=== PATIENT | male | born 1980 | race Caucasian/White ===

== ENCOUNTER 2017-04-01 12:06 | Inpatient (IN) | payer OTHER ==
[2017-04-01 13:43] LABS: ADD MAN DIFF? NO
[2017-04-01 13:45] LABS: BASOPHIL # 0.1 10^3/ul (0.0-0.1); BASOPHILS % 0.6 % (0.0-2.0); EOSINOPHILS % 0.3 % (0.0-7.0); HEMATOCRIT 45.4 % (42.0-52.0); LYMPHOCYTES # 2.6 10^3/ul (0.8-2.9); LYMPHOCYTES % 23.6 % (15.0-51.0); MEAN CORPUSCULAR HEMOGLOBIN 28.6 pg (29.0-33.0); MEAN CORPUSCULAR HGB CONC 35.2 g/dl (32.0-37.0); MEAN CORPUSCULAR VOLUME 81.2 fl (82.0-101.0); MEAN PLATELET VOLUME 9.3 fl (7.4-10.4); MONOCYTE # 1.2 10^3/ul (0.3-0.9); MONOCYTES % 11.2 % (0.0-11.0); NEUTROPHILS % 63.8 % (39.0-77.0); PLATELET COUNT 212 10^3/UL (140-415); POSITIVE DIFF @See below; RED BLOOD COUNT 5.59 10^6/ul (4.70-6.10); RED CELL DISTRIBUTION WIDTH 13.2 % (11.5-14.5)
[2017-04-01] MEDS: DEXAMETHASONE 10 MG/ML 1 ML INJ IV ×2 (13:46→23:43)
[2017-04-01] MEDS: morphine 4 MG/ML VIAL IV (13:46)
[2017-04-01] MEDS: ONDANSETRON 4 MG INJ IV (13:46)
[2017-04-01] MEDS: PIPER-TAZO 3.375 GM IV (PMX) 50 ML IVPB ×2 (13:47→19:15)
[2017-04-01] MEDS: SODIUM CHLORIDE 0.9% 1L BAG IV* (13:47)
[2017-04-01 14:04] LABS: INR 1.09; PROTIME 14.3 Sec (11.9-14.9); PT RATIO 1.1
[2017-04-01 14:05] LABS: PARTIAL THROMBOPLASTIN TIME 35.7 Sec (25.0-35.0)
[2017-04-01 14:10] LABS: LACTIC ACID 1.3 mmol/L (0.5-2.0)
[2017-04-01 14:13] LABS: ALANINE AMINOTRANSFERASE 174 IU/L (13-69); ALBUMIN 4.5 g/dl (3.3-4.9); ALBUMIN/GLOBULIN RATIO 1.45; ALKALINE PHOSPHATASE 111 IU/L (42-121); ANION GAP 14 (8-16); ASPARTATE AMINO TRANSFERASE 93 IU/L (15-46); BILIRUBIN,INDIRECT 0.8 mg/dl (0-1.1); BILIRUBIN,TOTAL 0.8 mg/dl (0.2-1.3); BLOOD UREA NITROGEN 10 mg/dl (7-20); CALCIUM 9.5 mg/dl (8.4-10.2); CARBON DIOXIDE 29 mmol/L (21-31); CHLORIDE 98 mmol/L (97-110); CREATININE 0.95 mg/dl (0.61-1.24); GLUCOSE 107 mg/dl (70-220); POTASSIUM 4.2 mmol/L (3.5-5.1); SODIUM 137 mmol/L (135-144); TOTAL PROTEIN 7.6 g/dl (6.1-8.1)
[2017-04-01 14:23] LABS: TROPONIN-I < 0.012 ng/ml (0.00-0.12)
[2017-04-01] MEDS ORDERED: ONDANSETRON 4 MG INJ IV (15:00)
[2017-04-01] MEDS: IOHEXOL 300MG/ML 150 ML BTL (15:20)
[2017-04-01] MEDS: SOD CHLORIDE 0.9% 100 ML (15:20)
[2017-04-01] MEDS: VANCOMYCIN 1 GM (PMX) 250 ML IVPB (16:00)
[2017-04-01] MEDS: KETOROLAC 30 MG INJ IV (16:52)
[2017-04-01] MEDS ORDERED: VANCOMYCIN IV PER PHARMACY XX (17:00)
[2017-04-01 17:02] LABS: LACTIC ACID 1.1 mmol/L (0.5-2.0)
[2017-04-01] MEDS: DEXTROSE 5%-0.45% NACL 1,000 ML IV (18:10)
[2017-04-01 20:30] LABS: ADD UMIC NO; UR ASCORBIC ACID NEGATIVE (NEGATIVE); UR BILIRUBIN (Dip) NEGATIVE (NEGATIVE); UR BLOOD (Dip) NEGATIVE (NEGATIVE); UR CLARITY CLEAR (CLEAR); UR COLOR STRAW (YELLOW); UR GLUCOSE (Dip) NEGATIVE (NEGATIVE); UR KETONES (Dip) NEGATIVE (NEGATIVE); UR LEUKOCYTE ESTERASE (Dip) NEGATIVE Leu/ul (NEGATIVE); UR NITRITE (Dip) NEGATIVE (NEGATIVE); UR SPECIFIC GRAVITY (Dip) 1.013 (1.003-1.030); UR TOTAL PROTEIN (Dip) NEGATIVE (NEGATIVE); UR UROBILINOGEN (Dip) NEGATIVE (NEGATIVE)
[2017-04-01 21:56] LABS: LACTIC ACID 1.4 mmol/L (0.5-2.0)
[2017-04-01] MEDS: VANCOMYCIN 1.25 GM in SODIUM CHLORIDE 0.45 % 250 ML IVPB (22:09)
[2017-04-02] MEDS: HYDROmorphONE 1 MG/ML SYG IV (00:08)
[2017-04-02] MEDS: DEXTROSE 5%-0.45% NACL 1,000 ML IV ×2 (01:36→09:38)
[2017-04-02] MEDS: PIPER-TAZO 3.375 GM IV (PMX) 50 ML IVPB ×5 (01:36→23:48)
[2017-04-02] MEDS: DEXAMETHASONE 10 MG/ML 1 ML INJ IV (04:02)
[2017-04-02] MEDS: VANCOMYCIN 1.25 GM in SODIUM CHLORIDE 0.45 % 250 ML IVPB ×2 (05:00→14:41)
[2017-04-02] MEDS: PANTOPRAZOLE 40 MG INJ IV (06:33)
[2017-04-02 12:33] LABS: VANCOMYCIN,TROUGH 11.7 ug/ml (10.0-20.0)
[2017-04-02] MEDS: KETOROLAC 30 MG INJ IV (12:36)
[2017-04-03] MEDS: KETOROLAC 30 MG INJ IV (04:33)
[2017-04-03 05:28] LABS: ADD MAN DIFF? NO
[2017-04-03] MEDS: PANTOPRAZOLE 40 MG INJ IV (05:40)
[2017-04-03] MEDS: PIPER-TAZO 3.375 GM IV (PMX) 50 ML IVPB (05:40)
[2017-04-03 05:52] LABS: WHITE BLOOD COUNT 9.9 10^3/ul (4.8-10.8)
[2017-04-03 05:52] LABS: BASOPHIL # 0.1 10^3/ul (0.0-0.1); BASOPHILS % 0.7 % (0.0-2.0); EOSINOPHILS # 0.2 10^3/ul (0.0-0.5); EOSINOPHILS % 1.5 % (0.0-7.0); HEMATOCRIT 37.5 % (42.0-52.0); HEMOGLOBIN 13.5 g/dl (14.0-18.0); LYMPHOCYTES # 3.2 10^3/ul (0.8-2.9); LYMPHOCYTES % 32.4 % (15.0-51.0); MEAN CORPUSCULAR HEMOGLOBIN 29.3 pg (29.0-33.0); MEAN CORPUSCULAR VOLUME 81.5 fl (82.0-101.0); MEAN PLATELET VOLUME 9.8 fl (7.4-10.4); MONOCYTES % 10.1 % (0.0-11.0); NEUTROPHIL # 5.5 10^3/ul (1.6-7.5); PLATELET COUNT 241 10^3/UL (140-415); POSITIVE DIFF @See below; RED CELL DISTRIBUTION WIDTH 13.7 % (11.5-14.5)
== END 2017-04-03 12:08 | disposition home or self-care (01) | DRG 153 ==
LOC: ICU 14:12 → FTE 12:06 → PP2 04-02 20:14
DX: J03.90 Acute tonsillitis, unspecified (principal); R65.10 Systemic inflammatory response syndrome (SIRS) of non-infectious origin without acute organ dysfunction
CPT/HCPCS: 36415; 70491; 71010; 80053; 80202; 81003; 83605; 84484; 85025; 85610; 85730; 87040; 87081; 87086; 93005; 96374; 96375; 96376; 99291-25

== ENCOUNTER 2017-06-01 12:02 | Day surgery (SDC) | payer OTHER ==
[~2017-06-01 12:02] MED LIST: LIDOCAINE 1% (MDV) 20 ML INJ
[2017-06-01] MEDS ORDERED: PROPOFOL 20 ML (14:33)
[2017-06-01] MEDS ORDERED: FENTAnyl 50 MCG/ML VIAL (14:33)
[2017-06-01] MEDS ORDERED: ROCURONIUM 50 MG INJ (14:33)
[2017-06-01] MEDS ORDERED: MIDAZOLAM 1 MG/ML 2 ML INJ (14:33)
[2017-06-01] MEDS ORDERED: ONDANSETRON 4 MG INJ (14:45)
[2017-06-01] MEDS ORDERED: DEXAMETHASONE 4 MG/ML 1 ML INJ (14:45)
[2017-06-01] MEDS ORDERED: FAMOTIDINE 20 MG INJ (14:47)
[2017-06-01] MEDS ORDERED: SUGAMMADEX SODIUM 200 MG/2 ML VIAL IV (15:10)
[2017-06-01] MEDS ORDERED: MEPERIDINE 25 MG INJ (15:22)
[2017-06-01] MEDS: HYDROmorphONE (0.2 MG/ML) 10ML SYG IV (15:51)
[2017-06-01] MEDS ORDERED: OXYCODONE/ACETAMINOPHEN (5/325) TAB PO (16:00)
== END 2017-06-01 16:28 | disposition home or self-care (01) ==
LOC: SDS 12:02
DX: J35.01 Chronic tonsillitis (principal)
CPT/HCPCS: 42826; 71045; 88304

== ENCOUNTER 2017-06-02 01:39 | Emergency (ER) | payer OTHER ==
[2017-06-02] MEDS: SOD CHLORIDE 0.9% 1,000 ML IV (02:12)
[2017-06-02 02:29] LABS: ADD MAN DIFF? NO
[2017-06-02 02:31] LABS: BASOPHIL # 0.1 10^3/ul (0.0-0.1); BASOPHILS % 0.3 % (0.0-2.0); HEMATOCRIT 46.4 % (42.0-52.0); HEMOGLOBIN 16.7 g/dl (14.0-18.0); LYMPHOCYTES # 1.7 10^3/ul (0.8-2.9); LYMPHOCYTES % 8.3 % (15.0-51.0); MEAN CORPUSCULAR HEMOGLOBIN 28.7 pg (29.0-33.0); MEAN CORPUSCULAR VOLUME 79.9 fl (82.0-101.0); MEAN PLATELET VOLUME 9.7 fl (7.4-10.4); MONOCYTES % 4.9 % (0.0-11.0); NEUTROPHILS % 85.8 % (39.0-77.0); PLATELET COUNT 406 10^3/UL (140-415); RED BLOOD COUNT 5.81 10^6/ul (4.70-6.10); RED CELL DISTRIBUTION WIDTH 13.8 % (11.5-14.5)
[2017-06-02 02:46] LABS: INR 0.97
[2017-06-02 02:47] LABS: PARTIAL THROMBOPLASTIN TIME 27.4 Sec (25.0-35.0)
[2017-06-02 02:48] LABS: ALANINE AMINOTRANSFERASE 58 IU/L (13-69); ALBUMIN 4.8 g/dl (3.3-4.9); ALBUMIN/GLOBULIN RATIO 1.92; ALKALINE PHOSPHATASE 63 IU/L (42-121); ANION GAP 21 (8-16); ASPARTATE AMINO TRANSFERASE 34 IU/L (15-46); BILIRUBIN,INDIRECT 0.3 mg/dl (0-1.1); BILIRUBIN,TOTAL 0.3 mg/dl (0.2-1.3); BLOOD UREA NITROGEN 13 mg/dl (7-20); CALCIUM 10.1 mg/dl (8.4-10.2); CARBON DIOXIDE 25 mmol/L (21-31); CHLORIDE 102 mmol/L (97-110); CREATININE 0.82 mg/dl (0.61-1.24); GLUCOSE 121 mg/dl (70-220); POTASSIUM 4.4 mmol/L (3.5-5.1); SODIUM 144 mmol/L (135-144); TOTAL PROTEIN 7.3 g/dl (6.1-8.1)
[2017-06-02 03:12] LABS: TROPONIN-I < 0.012 ng/ml (0.00-0.12)
== END 2017-06-02 05:50 | disposition home or self-care (01) ==
LOC: E/R 01:39
DX: L76.22 Postprocedural hemorrhage of skin and subcutaneous tissue following other procedure (principal); F17.210 Nicotine dependence, cigarettes, uncomplicated; R07.9 Chest pain, unspecified
CPT/HCPCS: 36415; 71045; 80053; 84484; 85025; 85610; 85730; 93005; 99285-25

== ENCOUNTER 2017-06-06 06:57 | Emergency (ER) | payer OTHER ==
[2017-06-06 08:48] LABS: ADD MAN DIFF? NO
[2017-06-06 08:59] LABS: BASOPHIL # 0.1 10^3/ul (0.0-0.1); BASOPHILS % 0.4 % (0.0-2.0); EOSINOPHILS # 0.3 10^3/ul (0.0-0.5); EOSINOPHILS % 2.5 % (0.0-7.0); HEMATOCRIT 42.8 % (42.0-52.0); HEMOGLOBIN 15.3 g/dl (14.0-18.0); LYMPHOCYTES # 1.5 10^3/ul (0.8-2.9); LYMPHOCYTES % 12.2 % (15.0-51.0); MEAN CORPUSCULAR HEMOGLOBIN 28.7 pg (29.0-33.0); MEAN CORPUSCULAR HGB CONC 35.7 g/dl (32.0-37.0); MEAN CORPUSCULAR VOLUME 80.1 fl (82.0-101.0); MEAN PLATELET VOLUME 9.7 fl (7.4-10.4); MONOCYTE # 0.9 10^3/ul (0.3-0.9); MONOCYTES % 7.5 % (0.0-11.0); NEUTROPHIL # 9.2 10^3/ul (1.6-7.5); NEUTROPHILS % 76.7 % (39.0-77.0); PLATELET COUNT 348 10^3/UL (140-415); RED BLOOD COUNT 5.34 10^6/ul (4.70-6.10); RED CELL DISTRIBUTION WIDTH 13.1 % (11.5-14.5)
== END 2017-06-06 09:31 | disposition home or self-care (01) ==
LOC: FTE 06:57
DX: L76.22 Postprocedural hemorrhage of skin and subcutaneous tissue following other procedure (principal); Z87.891 Personal history of nicotine dependence
CPT/HCPCS: 85025; 99283

== ENCOUNTER 2017-07-10 16:25 | Emergency (ER) | payer SELFPAY, OTHER | END 2017-07-10 18:50 | disposition left against medical advice (07) | LOC: FTE 16:25 | DX: Z53.21 Procedure and treatment not carried out due to patient leaving prior to being seen by health care provider (principal) ==

== ENCOUNTER 2018-06-17 02:39 | Emergency (ER) | payer OTHER ==
[2018-06-17] MEDS: HYDROCODONE/APAP (5/325) TAB PO (05:34)
== END 2018-06-17 06:39 | disposition home or self-care (01) ==
LOC: FTE 02:39
DX: M23.92 Unspecified internal derangement of left knee (principal); Z87.891 Personal history of nicotine dependence
CPT/HCPCS: 29505; 73562; 99283-25

== ENCOUNTER 2018-08-31 23:57 | Emergency (ER) | payer SELFPAY, OTHER ==
[2018-09-01] MEDS: IBUPROFEN 600 MG TAB PO (02:06)
== END 2018-09-01 04:28 | disposition home or self-care (01) ==
LOC: FTE 23:57
DX: S13.4XXA Sprain of ligaments of cervical spine, initial encounter (principal); F17.210 Nicotine dependence, cigarettes, uncomplicated; V49.40XA Driver injured in collision with unspecified motor vehicles in traffic accident, initial encounter
CPT/HCPCS: 72072; 72100; 72125; 99284-25